=== PATIENT | male | born 1955 | race Hispanic/Latino ===

== ENCOUNTER → 2020-06-14 | Outpatient (CLI) | payer BC | END | disposition home or self-care (01) | LOC: OIH 13:15 | PROVIDERS: ATTEND Internal Medicine | DX: M19.042 Primary osteoarthritis, left hand (principal); M19.041 Primary osteoarthritis, right hand; M19.031 Primary osteoarthritis, right wrist | CPT/HCPCS: 73100 ==

== ENCOUNTER 2024-03-12 15:59 | Emergency (ER) | payer BC, OTHER ==
[~2024-03-12] VITALS: Ht 167.6 cm; Wt 81.6 kg
[2024-03-12] MEDS: LIDOCAINE 1%-EPI 1:100,000 20 ML VIAL ONE (17:16)
[2024-03-12] MEDS: LIDOCAINE 1%-EPI 1:100,000 20 ML VIAL IJ SCH (17:32)
[2024-03-12 17:33] VITALS: BP 128/76; PULSE 90; RESP 16; TEMP 98; O2SAT 100
== END 2024-03-12 17:33 | disposition home or self-care (01) ==
LOC: EDH 15:59
DX: N50.1 Vascular disorders of male genital organs (principal); E11.9 Type 2 diabetes mellitus without complications
CPT/HCPCS: 99283; 96374; J3490